=== PATIENT | female | born 1980 | race Caucasian/White ===

== ENCOUNTER → 2016-09-06 | Outpatient (CLI) | payer OTHER ==
[2014-06-02 09:23] VITALS: BP 97/72
[~2016-09-06] MED LIST: no home medications
[2016-09-06 11:07] LABS: BASO # 0.1 x10^3/uL (0.0-0.2); BASO % 1 % (0-3); EOS % 2 % (0-3); HEMOGLOBIN 11.8 g/dL (12.0-15.5); LYMPH # 2.6 x10^3/uL (1.0-4.8); LYMPH % 41 % (24-48); MEAN CORPUSCULAR HEMOGLOBIN 26 pg (25-35); MEAN CORPUSCULAR HGB CONC 32 g/dL (31-37); MEAN CORPUSCULAR VOLUME 83 fL (79-100); MONO % 11 % (0-9); NEUT % 44 % (31-73); PLATELET COUNT 200 x10^3/uL (140-400); RED BLOOD COUNT 4.48 x10^6/uL (3.50-5.40); RED CELL DISTRIBUTION WIDTH 14.8 % (11.5-14.5); WHITE BLOOD COUNT 6.3 x10^3/uL (4.0-11.0)
[2016-09-06 11:20] LABS: ALBUMIN 3.9 g/dL (3.4-5.0); ALBUMIN/GLOBULIN RATIO 1.3 (1.0-1.7); CALCIUM 8.6 mg/dL (8.5-10.1); CREATININE 0.7 mg/dL (0.6-1.0); GFR 94.2; POTASSIUM 4.4 mmol/L (3.5-5.1); TOTAL BILIRUBIN 0.5 mg/dL (0.2-1.0); TOTAL PROTEIN 6.8 g/dL (6.4-8.2)
[2016-09-06 11:21] LABS: CHOLESTEROL/HDL RATIO 2.5
[2016-09-06 11:29] LABS: FREE T4 0.99 ng/dL (0.76-1.46)
== END | disposition home or self-care (01) ==
LOC: SPEC 10:57
PROVIDERS: ATTEND Specialist
DX: Z13.9 Encounter for screening, unspecified (principal); R53.83 Other fatigue; R53.81 Other malaise
CPT/HCPCS: 36415; 80053; 80061; 83036; 84439; 84443; 85027

== ENCOUNTER → 2017-11-14 | Outpatient (CLI) | payer OTHER ==
[2017-11-14 13:57] LABS: ADD MAN DIFF? NO
[2017-11-14 14:04] LABS: BASO # 0.1 x10^3/uL (0.0-0.2); BASO % 1 % (0-3); EOS # 0.1 x10^3/uL (0.0-0.7); EOS % 2 % (0-3); HEMATOCRIT 39.3 % (36.0-47.0); HEMOGLOBIN 12.8 g/dL (12.0-15.5); LYMPH # 2.2 x10^3/uL (1.0-4.8); LYMPH % 37 % (24-48); MEAN CORPUSCULAR HEMOGLOBIN 29 pg (25-35); MEAN CORPUSCULAR HGB CONC 33 g/dL (31-37); MEAN CORPUSCULAR VOLUME 89 fL (79-100); MONO # 0.6 x10^3/uL (0.0-1.1); MONO % 11 % (0-9); NEUT # 2.9 x10^3uL (1.8-7.7); NEUT % 49 % (31-73); PLATELET COUNT 206 x10^3/uL (140-400); RED BLOOD COUNT 4.42 x10^6/uL (3.50-5.40); RED CELL DISTRIBUTION WIDTH 14.6 % (11.5-14.5)
[2017-11-14 14:30] LABS: % SAT IRON 16 % (15-34); ALBUMIN 3.9 g/dL (3.4-5.0); ALBUMIN/GLOBULIN RATIO 1.3 (1.0-1.7); ALK PHOS 67 U/L (46-116); ALT (SGPT) 20 U/L (14-59); ANION GAP 9 (6-14); AST (SGOT) 17 U/L (15-37); BLOOD UREA NITROGEN 12 mg/dL (7-20); BUN/CREATININE RATIO 15 (6-20); CALCIUM 8.8 mg/dL (8.5-10.1); CARBON DIOXIDE 28 mmol/L (21-32); CHLORIDE 105 mmol/L (98-107); CREATININE 0.8 mg/dL (0.6-1.0); GFR 80.3; GLUCOSE 84 mg/dL (70-99); IRON,SERUM 57 ug/dL (50-170); POTASSIUM 4.4 mmol/L (3.5-5.1); SODIUM 142 mmol/L (136-145); TOTAL BILIRUBIN 0.4 mg/dL (0.2-1.0)
[2017-11-14 14:40] LABS: THYROID STIM HORMONE (TSH) 1.053 uIU/mL (0.358-3.74)
== END | disposition home or self-care (01) ==
LOC: SPEC 12:40
DX: Z01.419 Encounter for gynecological examination (general) (routine) without abnormal findings (principal); Z11.3 Encounter for screening for infections with a predominantly sexual mode of transmission; Z12.72 Encounter for screening for malignant neoplasm of vagina; R53.83 Other fatigue; R79.89 Other specified abnormal findings of blood chemistry
CPT/HCPCS: 36415; 80053; 83540; 83550; 84443; 85025